=== PATIENT | male | born 1970 | race Caucasian/White ===

== ENCOUNTER 2022-02-03 21:09 | Emergency (ER) | payer SELFPAY ==
--- NOTE | 2022-02-03 | ECG_ITS ---
Test Reason : left arm pain Blood Pressure : / mmHG Vent. Rate : 102 BPM Atrial Rate : 102 BPM P-R Int : 162 ms QRS Dur : 082 ms QT Int : 322 ms P-R-T Axes : 046 051 027 degrees QTc Int : 419 ms Sinus tachycardia Otherwise normal ECG No previous ECGs available Referred By: Generic ED Physician Electronically Signed By:ALIX CRAMER
[2022-02-03 21:14] VITALS: BP 174/99; PULSE 97; RESP 18; TEMP 36.4; O2SAT 97; BMI 29.2
[2022-02-03 21:31] LABS: MANUAL DIFF FLAG NO
[2022-02-03 21:32] LABS: Basophils Absolute Auto 0.1 X10*3/uL (0.0-0.2); Basophils Percent Auto 0.7 % (0-2); Eosinophils Absolute Auto 0.5 X10*3/uL (0.0-0.4); Eosinophils Percent Auto 5.9 % (0-4); Hematocrit 42.4 % (42.0-52.0); Hemoglobin 14.9 g/dl (14.0-18.0); Imm Gran Abs Auto 0.03 X10*3/uL (0.00-0.03); Imm Gran Pct Auto 0.4 % (0.0-0.4); Lymphocytes Absolute Auto 2.6 X10*3/uL (1.2-4.9); Lymphocytes Percent Auto 33.7 % (20-40); Mean Corpuscular HGB Conc 35.1 g/dl (31.0-36.0); Mean Corpuscular Hemoglobin 32.3 pg (27.0-33.0); Mean Corpuscular Volume 91.8 fL (80.0-98.0); Monocytes Absolute Auto 0.7 X10*3/uL (0.1-1.2); Monocytes Percent Auto 9.4 % (2-11); Neutrophils Absolute Auto 3.8 x10*3/uL (2.0-8.3); Neutrophils Percent Auto 49.9 % (45-73); Platelet Count 218 X10*3/uL (160-400); Red Blood Count 4.62 X10*6/uL (4.60-5.80); Red Cell Distribution Width 13.2 % (11.0-16.0); White Blood Count 7.7 X10*3/uL (4.8-10.8)
[2022-02-03 21:48] LABS: Alanine Aminotransferase 21 U/L (0-40); Albumin Level 4.3 g/dL (3.5-5.0); Alkaline Phosphatase 93 U/L (39-117); Anion Gap 14 (12-20); Aspartate Amino Transferase 27 U/L (5-37); Bilirubin Total 0.3 mg/dL (0.0-1.0); Blood Urea Nitrogen 19 mg/dL (9-16); Calcium 9.7 mg/dL (8.4-10.2); Carbon Dioxide 26 mmol/L (22-29); Chloride 105 mmol/L (96-108); Creatinine Clr Calc Pharmacy 72.3; Estimated Glomerular Filt Rate 53; Glucose Random 76 mg/dL (60-115); Potassium 4.2 mmol/L (3.3-5.1); Sodium 141 mmol/L (135-145); Total Protein 7.5 g/dL (6.5-8.0)
[2022-02-03 21:56] LABS: Troponin-I High Sensitivity < 3.5 ng/L (<3.5-35.0)
== END 2022-02-03 23:19 | disposition left against medical advice (07) ==
LOC: HO.ED 23:13
PROVIDERS: Emergency Provider Emergency Medicine
DX: R07.9 Chest pain, unspecified (principal)
CPT/HCPCS: 36415; 80053; 84484; 85025; 93005; 99281; 99283